=== PATIENT | male | born 1995 | race Caucasian/White ===

== ENCOUNTER 2016-12-20 11:14 | Emergency (ER) | payer OTHER ==
[2016-12-20 11:20] VITALS: BP 124/79
--- NOTE | 2016-12-20 12:04 | ED SKIN/ALLERGY COMPLAINT ---
History of Present Illness General Chief Complaint: Laceration Procedure Stated Complaint: LFT HAND LAC AT WORK Source: patient Exam Limitations: no limitations Vital Signs & Intake/Output Vital Signs & Intake/Output Vital Signs Date Time Temp Pulse Resp B/P B/P Pulse O2 O2 Flow FiO2 Mean Ox Delivery Rate 12/20 1120 97.2 99 16 124/79 96 Room Air Allergies Coded Allergies: NO KNOWN ALLERGIES (12/20/16) Reconcile Medications No Known Home Medications Triage Note: PT TO ED WITH LAC TO RIGHT HAND. 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 LAST TETANUS UNSURE. Triage Nurses Notes Reviewed? yes Onset: Abrupt Duration: constant Timing: single episode today Severity: moderate Severity Numbers: 5 HPI: Patient is a 21-year-old male who presents emergency room stating that while at work today patient was using a razor blade to her left hand as he is left handed when he accidentally cut the razor blade to the dorsal aspect of his right hand between the first and second webspace resulting a laceration was bleeding was controlled prior to arrival. No medications given prior to arrival. Tetanus is unknown. Past History Travel History Traveled to [place] past 21 day No Medical History Any Pertinent Medical History? none Surgical History Surgical History: non-contributory Psychosocial History What is your primary language Pashto Tobacco Use: Current Daily Use Daily Tobacco Use Amount/Type: => 5 Cigarettes daily Family History Hx Contributory? No Review of Systems Review of Systems Constitutional: Reports: no symptoms. EENTM: Reports: no symptoms. Respiratory: Reports: no symptoms. Cardiovascular: Reports: no symptoms. GI: Reports: no symptoms. Genitourinary: Reports: no symptoms. Musculoskeletal: Reports: see HPI. Skin: Reports: see HPI. Neurological/Psychological: Reports: no symptoms. Hematologic/Endocrine: Reports: see HPI, bleeding. Immunologic/Allergic: Reports: no symptoms. All Other Systems: Reviewed and Negative Physical Exam Physical Exam General Appearance: no apparent distress, alert, comfortable Skin: normal color Comments: Well-developed well-nourished no apparent distress. HEENT: Atraumatic, extraocular motion intact Neck: Supple, no lymphadenopathy Back: Nontender Respiratory: No respiratory distress Extremities: No edema, full range of motion Neuro: Alert and oriented x3 Psych: Mood affect normal, normal memory normal judgment. Diagram Hands, Dorsum: 1) Noted 2 cm deep linear clean laceration No active bleeding no exposed bone no exposed tendon Full active range of motion full resisted range of motion noted with 1-5 digit flexion extension and wrist flexion and extension ulnar deviation and radial deviation Progress Differential Diagnosis: LACERATION, TENDON LACERATION, FRACTURE, FOREIGN BODY Plan of Care: Current Medications Sig/El Start time Last Medication Dose Stop Time Status Admin Ibuprofen 600 MG ONCE ONE 12/20 1214 AC (Motrin) 12/21 1215 Tetanus/Diphtheria 0.5 ML ONCE ONE 12/20 1214 AC Toxoids Adsorbed 12/21 1215 (Decavac) No concerns of tendon deficit or fracture. Margins were revised suture placement bacitracin bandage and Lneard wrap was applied. Pre-and post- neurovascular was intact. (DARCY VALDEZ,FABIO) Departure Departure Disposition: HOME OR SELF CARE Condition: Stable Clinical Impression Primary Impression: Laceration of right hand Referrals: PATIENT HAS NO PRIMARY CARE DR (PCP/Family) Additional Instructions: As discussed begin [id number] ibuprofen for pain and inflammation. Begin to apply bacitracin to the area once a day for the following 4 days with bandage then the area open to improve healing. If you note signs of infection redness, pain, swelling, discharge return to emergency room immediately. Return to the emergency room in 7-10 days for suture removal Departure Forms: Customer [employer] Employee Industrial Accident General Discharge Information Prescriptions: Current Visit Scripts No Known Home Medications Procedures Laceration/Wound Repair Laceration/Wound Repair: Wound Location: upper extremity (LEFT HAND) Wound's Depth, Shape: linear, subcutaneous Wound Length (cm): 2 Wound Explored: clean, no foreign body removed, irrigated extensively Irrigated w/ Saline (ccs): 360 Betadine Prep? Yes Anesthesia: 1% lidocaine Volume Anesthetic (ccs): 5 Wound Repaired With: sutures Suture Size/Type: 4:0 Number of Sutures: 5 Layer Closure? No Progress: Margins were revised for suture placement patient tolerated well bacitracin bandage was applied
== END 2016-12-20 13:41 ==
LOC: ERH 11:14
DX: S61.412A Laceration without foreign body of left hand, initial encounter (principal); W45.8XXA Other foreign body or object entering through skin, initial encounter; Y93.89 Activity, other specified; Y92.9 Unspecified place or not applicable
CPT/HCPCS: 90471; 90714